=== PATIENT | male | born 1950 | race African-American/Black ===

== ENCOUNTER 2019-07-12 03:16 | Inpatient (IN) | payer OTHER ==
[~2019-07-12] VITALS: Ht 177.8 cm; Wt 95.3 kg
--- NOTE | 2019-07-12 03:16 | NUR ---
PT RICHARD ALS. TAKEN TO BED 4
[2019-07-12 03:17] VITALS: BP 173/109
--- NOTE | 2019-07-12 03:17 | NUR ---
69 Y/O M BROUGHT INTO ER BY ALS WITH C/O SOB AND CHEST TIGHTNESS, PT REPORTS WORSENING SYMPTOMS WHEN LYING DOWN OR EVEN SITTING UP. PAST MED HX OF CHF AND HTN. PT REPORTS NONCOMPLIANCE WITH LASIX FOR A VERY LONG TIME DUE TO NOT REFILLING PRESCRIPTION AND RUNNING OUT. ONLY MEDICATION TAKEN WAS CHEWABLE ASPIRIN. PROPANOLOL TAKEN 2 DAYS AGO. RATES PAIN 5/10. PT SEEN STANDING UP AND REFUSED TO SIT DOWN WHEN ASKED BY RN. NO HX OF FALLS, NKA, DENIES V/D/C, STATES HE HAS A LITTLE BIT OF NAUSEA. HEART RATE ELEVATED-113, BP-173/109, O2-100%. ER MD MADE AWARE. WILL CONTINUE TO MONITOR.
--- NOTE | 2019-07-12 03:41 | NUR ---
Dr. English examining patient.
--- NOTE | 2019-07-12 04:00 | NUR ---
LAB AT BEDSIDE FOR BLOOD DRAW, PATIENT SITTING UP IN BED, TOLERATING WELL.
--- NOTE | 2019-07-12 04:02 | NUR ---
URINE SAMPLE COLLECTED AND RECEIVED BY LAB, PATIENT ABLE TO AMBULATE TO AND FROM RESTROOM WITHOUT INCIDENT. FLU SWAB ALSO COLLECTED AND GIVEN TO LAB.
--- NOTE | 2019-07-12 04:10 | NUR ---
PERIPHERAL IV INSERTED SUCCESSFULLY AFTER SECOND ATTEMPT. RIGHT AC 20G, FLUSHED, PATENT WITHOUT SYMPTOMS, SALINE LOCKED, PATIENT TOLERATED WELL.
[2019-07-12 04:14] LABS: BASOPHILS % (AUTO) 0.7 % (0.0-2.0); EOSINOPHILS # (AUTO) 0.1 K/uL (0-0.4); EOSINOPHILS % (AUTO) 1.1 % (0.0-4.0); HEMATOCRIT 45.7 % (36-52); HEMOGLOBIN 15.1 g/dL (12.0-18.0); LYMPHOCYTES % (AUTO) 22.9 % (20.5-51.1); MEAN CORPUSCULAR HEMOGLOBIN 29 pg (27-31); MEAN CORPUSCULAR HGB CONC 33 g/dL (33-37); MEAN CORPUSCULAR VOLUME 88.9 fL (80-94); MONOCYTES # (AUTO) 0.4 K/uL (0.8-1.0); NEUTROPHILS # (AUTO) 2.9 K/uL (1.8-7.7); NEUTROPHILS % (AUTO) 65.3 % (42.2-75.2); PLATELET COUNT (AUTO) 239 K/uL (140-450); RED BLOOD CELL COUNT(AUTO) 5.15 MIL/uL (4.20-6.10); RED CELL DISTRIBUTION WIDTH 14.4 % (11.6-13.7); WHITE BLOOD COUNT (AUTO) 4.5 K/uL (4.8-10.8)
[2019-07-12 04:16] LABS: APPEARANCE,URINE CLEAR (CLEAR); BILIRUBIN,URINE NEGATIVE (NEGATIVE); BLOOD, URINE NEGATIVE (NEGATIVE); COLOR,URINE YELLOW (YELLOW); LEUKOCYTE ESTERASE ,URINE NEGATIVE (NEGATIVE); NITRITE, URINE NEGATIVE (NEGATIVE); PH,URINE 8.5 (5.0-9.0); UGLUCOSE NEGATIVE (NEGATIVE)
--- NOTE | 2019-07-12 04:22 | NUR ---
X-Ray at bedside.
[2019-07-12 04:34] LABS: PROTHROMBIN TIME 10.1 secs (10.8-13.4)
[2019-07-12 04:40] LABS: BARBITURATE, URINE NEGATIVE ng/ml (NEG <=200); BENZODIAZEPINE, URINE NEGATIVE ng/mL (NEG <=200); CANNABINOID, URINE NEGATIVE ng/mL (NEG <=50); COCAINE, URINE NEGATIVE ng/mL (NEG <=300); OPIATE, URINE NEGATIVE ng/mL (NEG <=2000); PHENCYCLIDINE SCREEN,URINE NEGATIVE ng/mL (NEG <=25)
[2019-07-12 04:41] LABS: ANION GAP 13.4 (8-16); CARBON DIOXIDE 30.9 mmol/L (21-32); POTASSIUM 4.3 mmol/L (3.5-5.1)
[2019-07-12 04:42] LABS: ALBUMIN 3.9 g/dL (3.4-5.0); CREATININE 1.9 mg/dL (0.7-1.3); TOTAL BILIRUBIN 0.7 mg/dL (0.0-1.0)
--- NOTE | 2019-07-12 04:48 | NUR ---
CRITICAL LAB RECEIVED FROM JENNY, TROPONIN: 0.313, AND LACTIC ACID-2.8. GABINO MADE AWARE.
[2019-07-12] MEDS ORDERED: ASPIRIN 81 MG TAB.CHEW PO ONE (04:55)
--- NOTE | 2019-07-12 05:40 | NUR ---
PT AMBULATES TO RESTROOM. GAIT IS STEADY. WILL CONTINUE TO MONITOR.
[2019-07-12] MEDS ORDERED: ASPI-1718 PO (05:42)
[2019-07-12] MEDS ORDERED: PROP20TA29 PO (05:42)
[2019-07-12] MEDS ORDERED: ACETAMINOPHEN 325 MG TAB PO PRN (06:00)
[2019-07-12] MEDS ORDERED: MORPHINE SULFATE 2 MG/ML SYR IVP PRN (06:00)
[2019-07-12] MEDS ORDERED: DOCUSATE SODIUM 100 MG GELCAP PO PRN (06:00)
[2019-07-12] MEDS ORDERED: HYDROcodone/APAP 7.5/325 MG 1 TAB PO PRN (06:00)
[2019-07-12] MEDS ORDERED: ALBUTEROL SULFATE/IPRATROPIU 3 ML SOL IH PRN (06:00)
[2019-07-12] MEDS ORDERED: ONDANSETRON 4 MG/2 ML VIAL IM/IVP PRN (06:00)
--- NOTE | 2019-07-12 06:23 | NUR ---
PT IS NOT IN ROOM 125B AND HIS MEDS ARE NOT IN PIXIS
[2019-07-12] MEDS ORDERED: NITROGLYCERIN 0.4 MG TAB SL PRN (06:25)
[2019-07-12] MEDS ORDERED: INSULIN LISPRO SLIDING SCALE 100 UNITS/ML VIAL SUBQ PRN (06:25)
[2019-07-12] MEDS ORDERED: DEXTROSE 50% 50 ML SYR IVP PRN (06:25)
--- NOTE | 2019-07-12 06:30 | NUR ---
Patient will be admitted to care of DR. TURCIOS. Admited to MST. Will go to room 125B. Belongings list completed, INITIALED BY 2 RN'S. Report to GARRISON REYNOSO. VSS. NO COMPLAINTS AT THIS TIME.
--- NOTE | 2019-07-12 06:32 | NUR ---
PATIENT TAKEN TO [facility] ROOM 125 B VIA GURNEY, PATIENT AMBULATED TO BED WITHOUT INCIDENT. REPORT GIVEN TO GARRISON REYNOSO. BELONGINGS LIST SIGNED, CONFIRMED PATIENT HAS EYEGLASSES ON. CONNECTED TO TELE MONITOR AND ORIENTED TO CALL LIGHT. BED IN LOCKED POSITION, SIDERAILS UPx2.
--- NOTE | 2019-07-12 06:33 | NUR ---
RECEIVED PT FROM ER PER MICHAEL, AMBULATED TO BED WITH STEADY GAIT, VITAL SIGNS TAKEN, BP ELEVATED, ASYMPTOMATIC, DENIES CHEST PAIN, 98% ON ROOM AIR, NO SOB NOTED, MADE COMFORTABLE ON BED, CALL LIGHT WITHIN REACH.
[2019-07-12] MEDS: NACL 0.9% 1,000 ML IV SCH ×2 (06:45→18:07)
[2019-07-12] MEDS ORDERED: ALBUTEROL SULFATE/IPRATROPIU 3 ML SOL IH SCH (07:00)
[2019-07-12 07:07] LABS: MAGNESIUM 2.6 mg/dL (1.8-2.4); PHOSPHORUS 2.5 mg/dL (2.5-4.9); THYROID STIMULATING HORMONE 4.37 uIU/mL (0.34-3.74)
[2019-07-12 07:08] VITALS: BP 158/107
--- NOTE | 2019-07-12 07:08 | NUR ---
RECEIVED PT FROM DATABASE ARCHITECT NURSEANGELES, PT IS AWAKE AND SEATED ON THE BED WITH SIDE RAILS UP AND CALL LIGHT WITHIN, PERIPHERAL LINE ON THE RT AC G. 20, WITH NS INFUSING AT 100ML/HR, BILATERAL ANKLE SWELLING NOTED, NON-PITTING, PT DENIES CHEST PAIN, NO SIGN OF DISTRESS NOTED. WILL MONITOR PT
--- NOTE | 2019-07-12 07:10 | NUR ---
PT AWAKE, NO SIGNS OF DISTRESS, REPORT GIVEN TO GARRISON SHEIKH FOR CONTINUITY OF CARE.
[2019-07-12] MEDS: BLOOD GLUCOSE MONITORING 1 DEV DEV FS SCH ×4 (07:40→21:28)
--- NOTE | 2019-07-12 08:20 | NUR ---
PATIENT HAS BEEN SCREENED AND CATEGORIZED MODERATE NUTRITION RISK. PATIENT WILL BE SEEN WITHIN 3-5 DAYS OF ADMISSION. 07/14/19 07/16/[address]
[2019-07-12] MEDS ORDERED: LISINOPRIL 5 MG TAB PO SCH (09:00)
[2019-07-12] MEDS: FAMOTIDINE 20 MG TAB PO SCH (09:00)
[2019-07-12] MEDS: ASPIRIN 81 MG TAB.CHEW PO SCH (09:20)
[2019-07-12] MEDS: METOPROLOL 25 MG TAB PO SCH ×2 (09:22→21:27)
[2019-07-12] MEDS ORDERED: FAMOTIDINE 20 MG TAB PO SCH (11:36)
[2019-07-12] MEDS ORDERED: HEPARIN PER PHARMACY MC PRN (11:45)
[2019-07-12 12:00] VITALS: BP 121/86
[2019-07-12] MEDS: hePARIN / DEXT 5% PREMIX 250 ML IV SCH (13:27)
--- NOTE | 2019-07-12 13:27 | NUR ---
PT WAS STARTED WITH HEPARIN DRIP NOW AT 100 UNITS/HR, CO- SIGNED BY CHARGED NURSE, EUSEBIO. 4000 UNITS BOLUS OF HEPARIN WAS ADMINISTERED IV PUSH. WILL MONITOR PT.
--- NOTE | 2019-07-12 13:27 | NUR ---
DISCHARGE PLANNIN69 YEAR OLD MALE PATIENT HOME, ADMITTED DUE TO SOB, DYSPNEA AND CHEST TIGHTENING. WITH INITIAL DIAGNOSIS OF DYSPNEA, NSTEMI AND ELEVATED TROPONIN. PAST MEDICAL HISTORY INCLUDE HTN. TROPONIN ON ADMISSION 0.313 AND TODAY 2.162. ON HEPARIN DRIP, PTT 22.8. CXR SHOWED MILD CARDIOMEGALY AND LARGE HIATAL HERNIA. LACTIC ACID 3.0. CARDIO CONSULT WITH DR. WATERS FOR CHEST PAIN. DC PLAN PENDING PATIENT'S RESPONSE TO TREATMENT. Addendum: 07/13/19 at 1205 by Padmaja Ballard LATE ENTRY: RECEIVED AN ORDER FOR HIGHER LEVEL OF CARE TRANSFER FOR CARDIAC ANGIOGRAM TO [facility]. CONTACTED [facility], TRANSFERRED TO WIRELESS TELEGRAPHER. ABLE TO SPEAK TO MO. HE STATED ALL REFERRAL WILL GO THROUGH CASE MANAGEMENT. AND HE ALSO STATED THAT THEY ARE CLOSED THURSDAY AND THURSDAY FOR THE HOLIDAYS. CONTACTED CASE MANAGEMENT, SPOKE TO ALMA DELIA SMALL KICK PRESS OPERATOR. ALL CLINICALS FAXED TO [phone]. RECEIVED A CALL FROM ALMA DELIA, PROVIDED ME WITH DR. BLOUNT'S PHONE NUMBER [phone] FOR THE RESIDENT TO CALL. DR. CHAUDHARY MADE AWARE. OSCAR TO FOLLOW UP. Addendum: 07/13/19 at 1316 by Padmaja Ballard CM LATE ENTRY: PER DR. CHAUDHARY, DR. BLOUNT IS ABLE TO DO THE PROCEDURE BUT WE NEED AN ACCEPTING PHYSICIAN. HE REFERRED DR. RAHMAN. PER DR. CHAUDHARY, DR. RAHMAN IS ACCEPTING THE PATIENT. ALMA DELIA BENJAMINSULFURIC ACID PLANT OPERATOR MADE AWARE. CONTACTED TRAIN OPERATIONS SUPERVISOR AT [facility], NO ANSWER. LEFT MESSAGE. Addendum: 07/13/19 at 1437 by Padmaja Ballard CM LATE ENTRY: RECEIVED A CALL FROM JEROD NICHOLSTRAIN OPERATIONS SUPERVISOR FROM [facility]. SHE STATED THEY DO NOT HAVE A BED AVAILABLE AT THIS TIME. BUT STATED SHE WILL CONTACT MO FROM WIRELESS TELEGRAPHER IF THEY ARE ABLE TO DO THE PROCEDURE. RECEIVED A CALL FROM [facility]. SHE STATED THEY CAN DO THE PROCEDURE BUT PATIENT NEEDS TO BE THERE BEFORE 1400. DR. CHAUDHARY MADE AWARE. TRANSPORT SET UP WITH [facility] TRANSPORT IS EN ROUTE. PRIMARY RN MADE AWARE. RECEIVE A CALL FROM ALMA DELIA MOORE SMALL KICK PRESS OPERATOR, PATIENT CAN HAVE THE PROCEDURE DONE AT [facility] AND BACK TO [place]. DR CHAUDHARY MADE AWARE. HE STATED HE WILL CONTACT DR TURCIOS AND DR. WATERS. PER DR. CHAUDHARY, DR. TURCIOS WANTS THE PATIENT TO BE TRANSFERRED TO A HIGHER LEVEL OF CARE. JEREMIAH [facility] WIRELESS TELEGRAPHER, ALMA DELIA MOORE SMALL KICK PRESS OPERATOR, LADY NEWSOMETRAIN OPERATIONS SUPERVISOR AND JEREMIAS COWART MADE AWARE. [facility] TRANSPORT PLACED ON WILL CALL. Addendum: 07/13/19 at 1601 by Laurel Sewell CM DC PLANNING: CALLED [facility] [phone] SPOKE WITH SAKINA NEWSOME SUP STATED NEEDS ADMITTING OR ACCEPTING DR Wisdom NOTIFIED DR JAMES TO ASK DR KAILEE Muniz CM TO FOLLOW Addendum: 07/13/19 at 1628 by Padmaja Ballard PER SAWYER GARCIA [facility], THEY DO NOT PERFORM CARDIAC CATH. Addendum: 07/13/19 at 1641 by Laurel Donato DC PLANNING: SPOKE WITH DR KAILEE Wisdom STATED HE HAS ACCEPTING DR SALAZAR WILL BE THE ACCEPTING [employer] AND THE PROCEDURE CAN BE DONE ON THURSDAY. PER DR DUGAN PT CAN STAY HERE AT [facility] AND TRANSFER ON THURSDAY. [facility] SPOKE MARLYS JIM AND PROVIDED DR PERALTA # [phone] SAKINA WILL CONTACT HIM AND WILL ARRANGE TO TRANSFER THURSDAY
--- NOTE | 2019-07-12 15:50 | NUR ---
Med Specialist Note: Basic Screen: Yes High Risk DC Screen [place]: HANNAH VIERA [place] Relationship: FRIEND Pre-Admission Living Arrangements: Lives Alone Prior ADL Independent Current Home Health Name/Tel: N/A Current DME/02 Name/Tel: N/A Current Hospice Name/Tel: N/A Current Dialysis Name/Tel: N/A Healthcare Decision Maker: Patient Advance Directive No - REFUSED Physician Orders for Life Sustaining Treatment Form No Patient/Family Have Educational Needs No Information Taught: Advance Directive Person Taught: Patient Teaching Tools: Verbal Factors Affecting Learning: None Participation Level: Refused Evaluation: Verbalizes Understanding Needs Additional Education: No Discipline: Case Mgt/Social Svcs Tentative Discharge Plan/Destination: No Needs Identified Will require assistance post discharge: No Referred to Secretary: No Tentative Discharge Plan Summary: Patient is a 69-year-old male admitted for complaints of body aches, congestion and mild shortness of breath associated with mild tightness in chest. Patient has PMHX of CHF and hypertension. SW verified demographics with patient. Patient stated that address on [address] [place] [address]. [address], [place] [address]. Patient reports no history of mental health and no history of substance abuse. Patient's tentative plan after discharge is to return home. No further needs identified. Signature: SAMRA Palma Date: Jul 12, 2019 Time: 15:46
[2019-07-12 16:00] VITALS: BP 138/85
--- NOTE | 2019-07-12 19:35 | NUR ---
ENDORSED PT TO FILE KEEPER NURSE FOR CONTINUITY OF CARE.
--- NOTE | 2019-07-12 19:36 | NUR ---
RECEIVED ENDORSEMENT FROM AM SHIFT NURSE FOR CONTINUITY OF CARE. PATIENT ALERT AND ORIENTED X4. NO APPARENT DISTRESS NOTED. DENIES PAIN NOR DISCOMFORT. WITH PIV ON LFA 22G RUNNING HEPARIN. NO ADVERSE REACTION NOTED. NO INFILTRATION NOTED. WILL CONTINUE TO MONITOR.
[2019-07-12 20:00] VITALS: BP 109/66
--- NOTE | 2019-07-12 21:25 | NUR ---
PATIENT AWAKE IN BED. NO APPARENT DISTRESS NOTED. WILL CONTINUE TO MONITOR.
[2019-07-12] MEDS: ATORVASTATIN 20 MG TAB PO SCH (21:27)
--- NOTE | 2019-07-12 23:20 | NUR ---
PATIENT AWAKE IN BED, RESTING. DENIES PAIN NOR DISCOMFORT. HEPARIN STILL RUNNING ON LEFT FOREARM. NO ADVERSE REACTIONS NOTED. NO INFILTRATION NOTED. WILL CONTINUE TO MONITOR.
[2019-07-13] VITALS: BP 121/92
--- NOTE | 2019-07-13 01:16 | NUR ---
PATIENT ASLEEP IN BED. NO APPARENT DISTRESS NOTED. WILL CONTINUE TO MONITOR.
--- NOTE | 2019-07-13 03:17 | NUR ---
PATIENT ASLEEP IN BED. NO APPARENT DISTRESS NOTED. VISIBLE CHEST RISE AND FALL. WILL CONTINUE TO MONITOR.
[2019-07-13 04:00] VITALS: BP 133/83
--- NOTE | 2019-07-13 05:15 | NUR ---
PATIENT AWAKE IN BED. NO APPARENT DISTRESS NOTED. DENIES PAIN NOR DISCOMFORT. WILL CONTINUE TO MONITOR.
[2019-07-13 06:35] LABS: ANION GAP 14.9 (8-16); CREATININE 1.4 mg/dL (0.7-1.3); POTASSIUM 3.9 mmol/L (3.5-5.1)
[2019-07-13 06:38] LABS: CHOL/HDL RATIO 3.3 (1-4.5); MAGNESIUM 1.8 mg/dL (1.8-2.4); PHOSPHORUS 2.9 mg/dL (2.5-4.9)
[2019-07-13 06:53] LABS: BASOPHILS % (AUTO) 0.4 % (0.0-2.0); EOSINOPHILS # (AUTO) 0.1 K/uL (0-0.4); EOSINOPHILS % (AUTO) 1.4 % (0.0-4.0); HEMATOCRIT 41.8 % (36-52); HEMOGLOBIN 13.9 g/dL (12.0-18.0); LYMPHOCYTES # (AUTO) 1.1 K/uL (2.0-11.5); LYMPHOCYTES % (AUTO) 24.1 % (20.5-51.1); MEAN CORPUSCULAR HEMOGLOBIN 29 pg (27-31); MEAN CORPUSCULAR HGB CONC 33 g/dL (33-37); MEAN CORPUSCULAR VOLUME 88.4 fL (80-94); MONOCYTES # (AUTO) 0.6 K/uL (0.8-1.0); MONOCYTES % (AUTO) 13.6 % (1.7-9.3); NEUTROPHILS # (AUTO) 2.7 K/uL (1.8-7.7); NEUTROPHILS % (AUTO) 60.5 % (42.2-75.2); PLATELET COUNT (AUTO) 193 K/uL (140-450); RED BLOOD CELL COUNT(AUTO) 4.73 MIL/uL (4.20-6.10); RED CELL DISTRIBUTION WIDTH 14.5 % (11.6-13.7); WHITE BLOOD COUNT (AUTO) 4.5 K/uL (4.8-10.8)
--- NOTE | 2019-07-13 07:13 | NUR ---
ENDORSED TO AM SHIFT NURSE FOR CONTINUITY OF CARE.
--- NOTE | 2019-07-13 07:14 | NUR ---
RECEIVED REPORT FROM THE LOANS CONSULTANT NURSE. PT IS IN STABLE CONDITION. AWAKE AND ORIENTED. ROOM AIR. IV ON L FA 22G W/ HEPARIN INFUSING AT 1000U/HR. IV ON L HAND 24G NS AT 50ML/HR. PT TOLERATING WELL. NO SIGNS OF INFILTRATION. DRESSING INTACT. SKIN INTACT. LAST BM 07/13, THIS MORNING. V/S WITHIN NORMAL RANGE. DENIES PAIN. WILL CONTINUE TO MONITOR PT.
[2019-07-13] MEDS: BLOOD GLUCOSE MONITORING 1 DEV DEV FS SCH ×4 (07:34→20:58)
[2019-07-13 08:00] VITALS: BP 126/62
[2019-07-13] MEDS: ASPIRIN 81 MG TAB.CHEW PO SCH (09:33)
[2019-07-13] MEDS: FAMOTIDINE 20 MG TAB PO SCH (09:36)
[2019-07-13] MEDS: METOPROLOL 25 MG TAB PO SCH ×2 (09:36→20:58)
[2019-07-13] MEDS: LISINOPRIL 5 MG TAB PO SCH (09:37)
[2019-07-13] MEDS: NACL 0.9% 1,000 ML IV SCH (09:37)
[2019-07-13] MEDS: hePARIN / DEXT 5% PREMIX 250 ML IV SCH (09:45)
--- NOTE | 2019-07-13 09:47 | NUR ---
ADMINISTERED MORNING MEDS. ANSWERED ALL QUESTIONS. PTT CAME BACK 47.4. NO CHANGE. ADMINISTERED NEW BAG OF HEPARIN, STILL AT 1000U/HR. PT TOLERATING WELL. NO SIGNS OF DISTRESS. NO COMPLAINTS. NO PAIN. WILL CONTINUE TO MONITOR PT.
--- NOTE | 2019-07-13 10:00 | NUR ---
HARNESS BUILDER HERE TO SEE PT. PER MD, PT IS IN NEED FOR CT ANGIOGRAM. BUT IT IS NOT DONE HERE. WILL NEED TO GO TO HIGHER LEVEL OF CARE, POSSIBLY [place]. SS ORDER IN FOR TRANSFER. WILL AWAIT D/C ORDERS AND START D/C PROCESS.
[2019-07-13] MEDS ORDERED: DOCU-299 PO (10:54)
[2019-07-13] MEDS ORDERED: ACET-1182 PO (10:54)
[2019-07-13] MEDS ORDERED: LISI-424 PO (10:54)
[2019-07-13] MEDS ORDERED: HUMSLIDE SUBQ (10:54)
[2019-07-13] MEDS ORDERED: METO25TA PO (10:54)
[2019-07-13] MEDS ORDERED: MORP2SOL18 IVP (10:54)
[2019-07-13] MEDS ORDERED: FAMO20TA13 PO (10:54)
[2019-07-13] MEDS ORDERED: ALBU3SOL83 IH (10:54)
[2019-07-13] MEDS ORDERED: D50SYR IVP (10:54)
[2019-07-13] MEDS ORDERED: HEPA500056 IV (10:54)
[2019-07-13] MEDS ORDERED: GLUC-805 FS (10:54)
[2019-07-13] MEDS ORDERED: ONDA2SOL45 IM/IVP (10:54)
[2019-07-13] MEDS ORDERED: ACET-9529 PO (10:54)
[2019-07-13] MEDS ORDERED: HEPA-133 IV (10:54)
[2019-07-13] MEDS ORDERED: NITR0.4T1 SL (10:54)
[2019-07-13] MEDS ORDERED: ATOR20TA40 PO (10:54)
[2019-07-13] MEDS ORDERED: Heparin Per Pharmacy MC (10:54)
--- NOTE | 2019-07-13 11:11 | NUR ---
R/T IN THE ROOM. NO SIGNS OF RESPIRATORY DISTRESS. ALL NEEDS MET AT THIS TIME. WILL CONTINUE TO MONITOR PT.
[2019-07-13 12:00] VITALS: BP 145/94
--- NOTE | 2019-07-13 13:17 | NUR ---
CALLED AND SPOKE TO CM. AWAITING FOR BED AT [place]. WILL AWAIT FOR BED.
[2019-07-13 16:00] VITALS: BP 139/86
--- NOTE | 2019-07-13 19:00 | NUR ---
RECEIVED REPORT FROM AM SHIFT SHIFT NURSE. AWAKE AND ORIENTED. ROOM AIR. IV ON L FA 22G W/ HEPARIN INFUSING AT 1000U/HR. IV ON L HAND 24G NS AT 50ML/HR. PT TOLERATING WELL. NO SIGNS OF INFILTRATION. DRESSING INTACT. SKIN INTACT. DENIES PAIN. WILL CONTINUE TO MONITOR PT. FOR CARDIAC CATHERIZATION ENDORSED BY LAY FREEMAN. SSD STILL TAKING CARE OF IT, FOR A HIGHER LEVEL OF CARE.
[2019-07-13 20:00] VITALS: BP 133/87
--- NOTE | 2019-07-13 20:39 | NUR ---
ENDORSED ABELARDO TOMAS SHIFT NURSE FOR CONTINUITY OF CARE. EENDORSED PTT TO BE TAKEN FROM LAST BLOOD DRAW, STILL TO ORDER
--- NOTE | 2019-07-13 20:40 | NUR ---
RECEIVED PT FROM [facility] FOR CONTINUOUS CARE. PT IN STABLE CONDITION.
[2019-07-13] MEDS: ATORVASTATIN 20 MG TAB PO SCH (20:58)
--- NOTE | 2019-07-13 20:58 | NUR ---
GIVEN LIPITOR AND METOPROLOL MD ORDERED. PT TOLERATED WELL. BS CHECKED, 86, NO INSULIN COVERAGE NEEDED.
--- NOTE | 2019-07-13 22:06 | NUR ---
RECEIVED PT ON ROOM AIR WITH SP02 98%. NO RESPIRATORY DISTRESS NOTED AT THIS TIME. PRN TX NOT GIVEN. PT INFORMED TO NOTIFY RN WHEN EXPERIENCING SOB. WILL CONTINUE TO MONITOR PT
[2019-07-13] MEDS ORDERED: MELATONIN 3 MG TAB PO PRN (22:45)
--- NOTE | 2019-07-13 22:58 | NUR ---
PT C/O SLEEPLESSNESS, GIVEN MELATONIN MD ORDERED. PT TOLERATED WELL.
[2019-07-14] VITALS: BP 157/102
--- NOTE | 2019-07-14 00:10 | NUR ---
VS CHECKED, WITHIN PT'S BASELINE, WILL CONTINUE TO MONITOR.
--- NOTE | 2019-07-14 02:08 | NUR ---
PT SLEEPING IN BED. NO ACUTE DISTRESS NOTED.
[2019-07-14 04:00] VITALS: BP 118/76
--- NOTE | 2019-07-14 04:00 | NUR ---
VS CHECKED, WITHIN PT'S BASELINE. WILL CONTINUE TO MONITOR.
[2019-07-14] MEDS: BLOOD GLUCOSE MONITORING 1 DEV DEV FS SCH ×4 (05:39→20:41)
--- NOTE | 2019-07-14 05:39 | NUR ---
BS CHECKED, 88. NO INSULIN COVERAGE NEEDED.
[2019-07-14 05:59] LABS: ANION GAP 16.6 (8-16); CARBON DIOXIDE 24.5 mmol/L (21-32); CREATININE 1.4 mg/dL (0.7-1.3); POTASSIUM 4.1 mmol/L (3.5-5.1)
[2019-07-14 06:12] LABS: BASOPHILS % (AUTO) 0.8 % (0.0-2.0); EOSINOPHILS % (AUTO) 0.9 % (0.0-4.0); HEMATOCRIT 44.6 % (36-52); HEMOGLOBIN 14.9 g/dL (12.0-18.0); LYMPHOCYTES # (AUTO) 1.2 K/uL (2.0-11.5); MEAN CORPUSCULAR HEMOGLOBIN 30 pg (27-31); MEAN CORPUSCULAR HGB CONC 33 g/dL (33-37); MEAN CORPUSCULAR VOLUME 88.6 fL (80-94); MONOCYTES # (AUTO) 0.6 K/uL (0.8-1.0); MONOCYTES % (AUTO) 12.4 % (1.7-9.3); NEUTROPHILS # (AUTO) 2.7 K/uL (1.8-7.7); NEUTROPHILS % (AUTO) 59.9 % (42.2-75.2); PLATELET COUNT (AUTO) 193 K/uL (140-450); RED BLOOD CELL COUNT(AUTO) 5.03 MIL/uL (4.20-6.10); RED CELL DISTRIBUTION WIDTH 14.3 % (11.6-13.7); WHITE BLOOD COUNT (AUTO) 4.5 K/uL (4.8-10.8)
[2019-07-14 06:14] LABS: MAGNESIUM 1.8 mg/dL (1.8-2.4); PHOSPHORUS 3.3 mg/dL (2.5-4.9)
--- NOTE | 2019-07-14 06:30 | NUR ---
RECEIVED PHONE CALL FROM LAB FOR CRITICAL VALUE, TROPONIN 3.680, NOT REPORTED TO D/T TRENDING DOWN.
--- NOTE | 2019-07-14 07:02 | NUR ---
RECEIVED PHONE CALL FROM LAB FOR PTT 50.3. NOT REPORTED TO D/T IT IS WITHIN THERAPEUTIC RANGE.
--- NOTE | 2019-07-14 07:23 | NUR ---
ENDORSED PT TO DAY SHIFT NURSE. PT IN STABLE CONDITION.
--- NOTE | 2019-07-14 07:28 | NUR ---
RECEIVED PT FROM NIGHT SHIFTY NURSE, GENOVEVA, PT IS ASLEEP AND LYING ON THE BED WITH SIDE RAILS UP AND CALL LIGHT WITHIN REACH, IV LINES NOTED ON THE LEFT FA G. 22 WITH HEPARIN DRIP INFUSING AT 100UNITS, 1OML/HR, AND ON THE RT HAND G. 24 WITH NS INFUSING AT 50ML/HR, RESPIRATION EVEN, VISIBLE CHEST RISE, NO SIGN OF DISTRESS NOTED AND WILL CONTINUE TO MONITOR PT.
[2019-07-14 08:00] VITALS: BP 118/56
[2019-07-14] MEDS: FAMOTIDINE 20 MG TAB PO SCH (08:31)
[2019-07-14] MEDS: LISINOPRIL 5 MG TAB PO SCH (08:32)
[2019-07-14] MEDS: METOPROLOL 25 MG TAB PO SCH ×2 (08:32→20:40)
[2019-07-14] MEDS: ASPIRIN 81 MG TAB.CHEW PO SCH (08:32)
--- NOTE | 2019-07-14 08:32 | NUR ---
PT IS STANDING AND JUST FINISHED EATING HIS BREAKFAST, BP IS 118/56, PULSE WAS CHECKED MANUALLY AND IS 89/MIN, O2 SATURATION IS 97%, TEMPERATURE IS 98.3, ORAL MEDICATIONS WERE GIVEN TO PT, TEACHINGS AND SIDE EFFECTS WERE STATED TO PT AND PT VERBALIZED UNDERSTANDING, TOLERATED MEDICINES AND WILL CONTINUE TO BE MONITORED.
--- NOTE | 2019-07-14 09:26 | NUR ---
RECEIVED A CALL FROM DR. PERALTA, WORKING WITH DR. CHRISTOPHER DUGAN, FROM [facility] AND DR. PERALTA SAID THAT PT WILL BE TRANSFERRED TO [facility] TOMORROW FOR A CARDIAC CATH AT 1000 AM, BUT PT NEEDS TO BE IN THE TELEMETRY UNIT FIRST BETWEEN [phone] FOR MONITORING BEFORE GOING TO THE DESIGN ASSISTANT, MADE A TELEPHONE ORDER TO STOP PT'S HEPARIN DRIP AT MIDNIGHT AND PUT PT ON NPO AFTER MIDNIGHT TOO. DR. WILKINS WAS INFORMED AND SPOKE TO DR. PERALTA WELL. DOCUMENT EXAMINER, MANNY AND CHARGE NURSE,Fahad WILBURN WERE NOTIFIED ALSO.
[2019-07-14] MEDS: NACL 0.9% 1,000 ML IV SCH (10:14)
[2019-07-14] MEDS: hePARIN / DEXT 5% PREMIX 250 ML IV SCH (11:52)
--- NOTE | 2019-07-14 11:52 | NUR ---
ANEW BAG OF HEAPRIN WA STARTED TO PT, CO-SIGNED BY CHARGE NURSE, AKILA., RATE AT 100 UNITS/HR, WILL MONITOR PT
--- NOTE | 2019-07-14 11:54 | NUR ---
BLOOD GLUCOSE CHECK WAS DONE TO PT, RESULT IS 88, AND V/S TAKEN AND IS STABLE. WILL MONITOR PT.
[2019-07-14 12:00] VITALS: BP 103/68
--- NOTE | 2019-07-14 14:40 | NUR ---
CALLED [facility] AT [phone] AND SPOKE TO ANA CRISTINA, AND SAID THAT THEY WILL BE CALLING LATER TONIGHT FOR THE TELE BED NO. AND ANA CRISTINA ALSO SAID TO ARRANGE FOR THE TRANSPORTATION OF PT FOR TRANSFER TOMORROW AND PT NEEDS TO BE IN [facility] BET [phone].
[2019-07-14 16:00] VITALS: BP 129/87
--- NOTE | 2019-07-14 17:23 | NUR ---
BLOOD GLUCOSE CHECK DONE TO PT NOW AND RESULT IS 83, V/S TAKEN AND IS STABLE AND PT DENIES PAIN, WATCHING TV. WILL MONITOR TP
--- NOTE | 2019-07-14 19:15 | NUR ---
ENDORSED PT TO LINING VAMPER NURSEGENOVEVA FOR CONTINUITY OF CARE.
--- NOTE | 2019-07-14 19:16 | NUR ---
RECEIVED BEDSIDE REPORT FROM DAY SHIFT NURSE. PT IS AWAKE AND LYING ON THE BED WITH SIDE RAILS UP, IV LINES NOTED ON THE LEFT FA G. 22 WITH HEPARIN DRIP INFUSING AT 1000 UNITS, 1OML/HR, AND ON THE RT HAND G. 24 WITH NS INFUSING AT 50ML/HR, RESPIRATION EVEN AND UNLABORED, PT DENIED PAIN AT THIS TIME, NO SIGN OF DISTRESS NOTED. BED IN LOW POSITION, CALL LIGHT WITHIN REACH.
[2019-07-14 20:00] VITALS: BP_SYST 128; BP_SYST 131; BP_DIAS 88; BP_DIAS 93
[2019-07-14] MEDS: ATORVASTATIN 20 MG TAB PO SCH (20:40)
--- NOTE | 2019-07-14 20:41 | NUR ---
GIVEN LIPITOR AND METOPROLOL MD ORDERED. BS CHECKED, 104. NO INSULIN COVERAGE NEEDED.
--- NOTE | 2019-07-14 21:55 | NUR ---
CALLED [facility] TO FOLLOW UP TELE BED FOR PT . ABLE TO TALKED TO ZARI. HE SAID THEY ARE WORKING ON IT AND WILL CALL US BACK .
--- NOTE | 2019-07-14 22:52 | NUR ---
RECEIVED PT ON ROOM AIR WITH SP02 97%, AND CLEAR BREATH SOUNDS. NO RESPIRATORY DISTRESS NOTED; HR 81, AND RR 16. PRN TX NOT GIVEN. INFORMED PT TO NOTIFY RN WHEN EXPERIENCING SOB.
[2019-07-15] VITALS: BP 131/88
--- NOTE | 2019-07-15 00:05 | NUR ---
VS CHECKED, WITHIN PT'S BASELINE, WILL CONTINUE TO MONITOR.
--- NOTE | 2019-07-15 01:23 | NUR ---
CALLED [facility] AGAIN TO FOLLOW UP THE TELE BED FOR PT. HE SAID THEY ARE AWARE ABOUT PT TO BE THERE BY 0730 THIS AM. ZARI SAID THAT NO BED AVAILABLE AND HE WILL CALL ME BACK .
--- NOTE | 2019-07-15 01:43 | NUR ---
ZARI ,FROM [facility] CALLED BACK AND GAVE THE ROOM FOR PT. PT GOING TO STATION 3 ROOM 345 A.
--- NOTE | 2019-07-15 02:15 | NUR ---
PT SLEEPING IN BED COMFORTABLY. NO ACUTE DISTRESS NOTED.
[2019-07-15 04:00] VITALS: BP 121/78
--- NOTE | 2019-07-15 04:05 | NUR ---
VS CHECKED, WITHIN PT'S BASELINE, WILL CONTINUE TO MONITOR.
--- NOTE | 2019-07-15 06:00 | NUR ---
CALLED [facility] ST[facility], REPORT GIVEN TO GARRISON MARES.
[2019-07-15] MEDS: NACL 0.9% 1,000 ML IV SCH (06:07)
[2019-07-15 06:23] LABS: ANION GAP 16.9 (8-16); CARBON DIOXIDE 24.7 mmol/L (21-32); CREATININE 1.5 mg/dL (0.7-1.3); POTASSIUM 3.6 mmol/L (3.5-5.1)
[2019-07-15 06:24] LABS: PROTHROMBIN TIME 9.7 secs (10.8-13.4)
--- NOTE | 2019-07-15 06:38 | NUR ---
BS CHECKED, 74, NO INSULIN COVERAGE NEEDED.
[2019-07-15] MEDS: BLOOD GLUCOSE MONITORING 1 DEV DEV FS SCH (06:41)
[2019-07-15 06:44] LABS: BASOPHILS # (AUTO) 0.1 K/uL (0.00-0.22); BASOPHILS % (AUTO) 1.1 % (0.0-2.0); EOSINOPHILS # (AUTO) 0.1 K/uL (0-0.4); EOSINOPHILS % (AUTO) 1.2 % (0.0-4.0); HEMATOCRIT 43.3 % (36-52); HEMOGLOBIN 14.4 g/dL (12.0-18.0); LYMPHOCYTES # (AUTO) 1.5 K/uL (2.0-11.5); LYMPHOCYTES % (AUTO) 30.6 % (20.5-51.1); MEAN CORPUSCULAR HEMOGLOBIN 29 pg (27-31); MEAN CORPUSCULAR HGB CONC 33 g/dL (33-37); MEAN CORPUSCULAR VOLUME 88.6 fL (80-94); MONOCYTES # (AUTO) 0.7 K/uL (0.8-1.0); MONOCYTES % (AUTO) 14.6 % (1.7-9.3); NEUTROPHILS # (AUTO) 2.6 K/uL (1.8-7.7); NEUTROPHILS % (AUTO) 52.5 % (42.2-75.2); PLATELET COUNT (AUTO) 224 K/uL (140-450); RED BLOOD CELL COUNT(AUTO) 4.89 MIL/uL (4.20-6.10); RED CELL DISTRIBUTION WIDTH 14.1 % (11.6-13.7)
--- NOTE | 2019-07-15 07:01 | NUR ---
TRANSPORTATION CAME AND PICKED PT UP. PT IN STABLE CONDITION AND LEFT HOSPITAL.
[2019-07-15 07:08] LABS: MAGNESIUM 1.8 mg/dL (1.8-2.4); PHOSPHORUS 3.2 mg/dL (2.5-4.9)
== END 2019-07-15 07:15 | disposition short-term general hospital (02) | DRG 280 ==
LOC: MED 03:16 → MMU 06:01
PROVIDERS: ADMIT General Practice; ATTEND General Practice
DX: I21.4 Non-ST elevation (NSTEMI) myocardial infarction (principal); N17.0 Acute kidney failure with tubular necrosis; E87.2 Acidosis; I42.9 Cardiomyopathy, unspecified; I50.9 Heart failure, unspecified; I11.0 Hypertensive heart disease with heart failure; E02 Subclinical iodine-deficiency hypothyroidism; E83.41 Hypermagnesemia; E78.5 Hyperlipidemia, unspecified
CPT/HCPCS: 36415; 71045; 80048; 80053; 80305; 81003; 82948; 83036; 83605; 83690; 83735; 83880; 84100; 84439; 84443; 84484; 85025; 85379; 85610; 85730; 87040; 87081; 87086; 87804; 93005; 99285; J1644; J1815; J7030; Q0092

== ENCOUNTER 2019-12-16 06:52 | Emergency (ER) | payer OTHER ==
[~2019-12-16] VITALS: Ht 175.3 cm; Wt 79.4 kg
[~2019-12-16 06:52] MED LIST: ACET-1182 PO; ACET-9529 PO; ALBU3SOL83 IH; ASPI-1822 PO; ATOR20TA40 PO; D50SYR IVP; DOCU-299 PO; FAMO20TA13 PO; GLUC-805 FS; HUMSLIDE SUBQ; LISI-424 PO; METO25TA PO; MORP2SOL18 IVP; NITR0.4T1 SL; ONDA2SOL45 IM/IVP
[2019-12-16 07:03] VITALS: BP 109/74
[2019-12-16] MEDS ORDERED: FUROSEMIDE 40 MG TAB PO ONE (07:35)
[2019-12-16] MEDS ORDERED: LIDOCAINE JELLY 2% 30 ML TUBE TP ONE (07:45)
[2019-12-16] MEDS ORDERED: MORPHINE SULFATE 4 MG/ML SYR IM ONE (09:00)
[2019-12-16] MEDS ORDERED: ONDANSETRON 4 MG ODT PO ONE (09:00)
[2019-12-16] MEDS ORDERED: cefTRIAXone 1,000 MG in LIDOCAINE MPF 1% 2.1 ML IM ONE (09:25)
[2019-12-16] MEDS ORDERED: cefTRIAXone 1,000 MG VIAL ONE (09:32)
[2019-12-16] MEDS ORDERED: LIDOCAINE MPF 1% 5 ML ONE (09:32)
[2019-12-16 10:23] LABS: APPEARANCE,URINE CLOUDY (CLEAR); BILIRUBIN,URINE NEGATIVE (NEGATIVE); BLOOD, URINE 3+ (NEGATIVE); COLOR,URINE AMBER (YELLOW); LEUKOCYTE ESTERASE ,URINE 1+ (NEGATIVE); NITRITE, URINE POSITIVE (NEGATIVE); UGLUCOSE NEGATIVE (NEGATIVE)
[2019-12-16 10:45] LABS: RBC,URINE TOO NUMEROUS TO COUN /HPF (0-5)
[2019-12-16 11:32] VITALS: BP 116/61
== END 2019-12-16 11:32 | disposition home or self-care (01) ==
LOC: MED 06:52
DX: R33.9 Retention of urine, unspecified (principal); L97.921 Non-pressure chronic ulcer of unspecified part of left lower leg limited to breakdown of skin; I10 Essential (primary) hypertension; I51.89 Other ill-defined heart diseases; Z79.899 Other long term (current) drug therapy
CPT/HCPCS: 81001; 87086; 96372; 99284; J0696; J2001; J2270; Q0162

== ENCOUNTER 2019-12-18 19:05 | Inpatient (IN) | payer OTHER ==
[~2019-12-18] VITALS: Ht 175.3 cm; Wt 77.6 kg
[2019-12-18 19:12] VITALS: BP 116/91
[2019-12-18 20:37] LABS: BASOPHILS % (AUTO) 0.5 % (0.0-2.0); EOSINOPHILS # (AUTO) 0.1 K/uL (0-0.4); EOSINOPHILS % (AUTO) 2.7 % (0.0-4.0); HEMATOCRIT 33.9 % (36-52); HEMOGLOBIN 10.7 g/dL (12.0-18.0); LYMPHOCYTES # (AUTO) 0.5 K/uL (2.0-11.5); LYMPHOCYTES % (AUTO) 10.4 % (20.5-51.1); MEAN CORPUSCULAR HEMOGLOBIN 25 pg (27-31); MEAN CORPUSCULAR HGB CONC 32 g/dL (33-37); MEAN CORPUSCULAR VOLUME 79.9 fL (80-94); MONOCYTES # (AUTO) 0.5 K/uL (0.8-1.0); MONOCYTES % (AUTO) 9.6 % (1.7-9.3); NEUTROPHILS # (AUTO) 3.6 K/uL (1.8-7.7); NEUTROPHILS % (AUTO) 76.8 % (42.2-75.2); PLATELET COUNT (AUTO) 220 K/uL (140-450); RED BLOOD CELL COUNT(AUTO) 4.24 MIL/uL (4.20-6.10); RED CELL DISTRIBUTION WIDTH 17.6 % (11.6-13.7); WHITE BLOOD COUNT (AUTO) 4.7 K/uL (4.8-10.8)
[2019-12-18 21:12] LABS: ALBUMIN 2.6 g/dL (3.4-5.0); ANION GAP 11.5 (8-16); CARBON DIOXIDE 27.5 mmol/L (21-32); CREATININE 1.7 mg/dL (0.6-1.3); TOTAL BILIRUBIN 1.1 mg/dL (0.0-1.0)
[2019-12-18] MEDS ORDERED: ASPIRIN 325 MG TAB PO ONE (22:20)
[2019-12-18] MEDS ORDERED: HYDROcodone/APAP 5/325 MG 1 TAB TAB PO ONE (22:30)
[2019-12-18 23:30] VITALS: BP 90/60
[2019-12-19] MEDS ORDERED: SIMETHICONE 40 MG/0.6 ML PO PRN (02:25)
[2019-12-19] MEDS ORDERED: MELATONIN 3 MG TAB ONE (02:29)
[2019-12-19] MEDS: MELATONIN 3 MG TAB PO SCH ×2 (02:44→03:26)
[2019-12-19] MEDS ORDERED: SIMETHICONE 80 MG TAB.CHEW PO SCH (03:20)
[2019-12-19 04:00] VITALS: BP 102/60
[2019-12-19] MEDS: MORPHINE SULFATE 2 MG/ML SYR IVP PRN ×2 (04:13→08:58)
[2019-12-19 08:00] VITALS: BP 94/58
[2019-12-19] MEDS ORDERED: INSULIN LISPRO SLIDING SCALE 100 UNITS/ML VIAL SUBQ PRN (10:50)
[2019-12-19] MEDS ORDERED: NITROGLYCERIN 0.4 MG TAB SL PRN (10:50)
[2019-12-19] MEDS ORDERED: ACETAMINOPHEN 325 MG TAB PO PRN (10:50)
[2019-12-19] MEDS ORDERED: ONDANSETRON 4 MG/2 ML VIAL IVP PRN (10:50)
[2019-12-19] MEDS ORDERED: DEXTROSE 50% 50 ML SYR IVP PRN (10:50)
[2019-12-19] MEDS: BLOOD GLUCOSE MONITORING 1 DEV DEV FS SCH ×3 (11:30→21:14)
[2019-12-19 12:00] VITALS: BP 104/69
[2019-12-19] MEDS ORDERED: GAUZE TP PRN (12:05)
[2019-12-19] MEDS: GAUZE TP SCH (13:16)
[2019-12-19] MEDS: HYDROcodone/APAP 7.5/325 MG 1 TAB PO PRN ×2 (15:15→20:37)
[2019-12-19 16:00] VITALS: BP 98/61
[2019-12-19 20:00] VITALS: BP 95/59
[2019-12-19] MEDS ORDERED: LACTULOSE 20 GM/30 ML UDC PO PRN (23:40)
[2019-12-20] VITALS: BP 104/70
[2019-12-20 04:00] VITALS: BP 99/67
[2019-12-20] MEDS: BLOOD GLUCOSE MONITORING 1 DEV DEV FS SCH ×3 (05:16→16:30)
[2019-12-20 08:00] VITALS: BP 101/74
[2019-12-20] MEDS ORDERED: ASPIRIN 81 MG TAB.CHEW PO SCH (09:00)
[2019-12-20] MEDS ORDERED: LISINOPRIL 5 MG TAB PO SCH (09:00)
[2019-12-20] MEDS ORDERED: DOCUSATE SODIUM 100 MG GELCAP PO SCH (09:00)
[2019-12-20] MEDS ORDERED: ATORVASTATIN 20 MG TAB PO SCH (09:00)
[2019-12-20] MEDS: MORPHINE SULFATE 2 MG/ML SYR IVP PRN (11:39)
[2019-12-20 12:00] VITALS: BP 98/62
[2019-12-20] MEDS ORDERED: SIMETHICONE 80 MG TAB.CHEW PO PRN (13:50)
[2019-12-20] MEDS: GAUZE TP SCH (14:50)
[2019-12-20 16:00] VITALS: BP 102/69
[2019-12-20] MEDS ORDERED: FURO-572 PO ×3 (16:16→16:30)
== END 2019-12-20 19:00 | disposition home health service (06) | DRG 313 ==
LOC: MED 19:05 → MMU 22:47
PROVIDERS: ADMIT Hospitalist; ATTEND Hospitalist
DX: R07.9 Chest pain, unspecified (principal); I25.10 Atherosclerotic heart disease of native coronary artery without angina pectoris; I50.9 Heart failure, unspecified; Z79.899 Other long term (current) drug therapy; E11.9 Type 2 diabetes mellitus without complications; I11.0 Hypertensive heart disease with heart failure; K21.9 Gastro-esophageal reflux disease without esophagitis; E78.5 Hyperlipidemia, unspecified; K44.9 Diaphragmatic hernia without obstruction or gangrene; S81.802A Unspecified open wound, left lower leg, initial encounter; X58.XXXA Exposure to other specified factors, initial encounter; Y93.89 Activity, other specified; Y92.89 Other specified places as the place of occurrence of the external cause; Y99.8 Other external cause status
CPT/HCPCS: 36415; 71045; 80053; 82550; 82553; 83690; 83880; 84484; 85025; 87081; 93005; 97112; 97116; 97161-GP; 99285; J1815; J2270; Q0092

== ENCOUNTER 2020-01-02 18:29 | Emergency (ER) | payer OTHER ==
[~2020-01-02] VITALS: Ht 177.8 cm; Wt 79.4 kg
[~2020-01-02 18:29] MED LIST changes: +FURO-572 PO; -HUMSLIDE SUBQ; -MORP2SOL18 IVP; -NITR0.4T1 SL
[2020-01-02 18:33] VITALS: BP 124/88
--- NOTE | 2020-01-02 18:40 | NUR ---
GARCIA WAS PLACED HERE December FOR URINARY RETENTION, PT WAS INSTRUCTED TO FOLLOW UP WITH PCP IN REGARDS TO REMOVING CATHETER PT STILL HAS CATHETER IN PT STATES HE HAS DIARRHEA ,PT AWAKE ,A LERT, AFIBRILE , AMBULATORY WITH CATHETER BAG IN HIS LEFT LEG .
--- NOTE | 2020-01-02 18:41 | NUR ---
dr meyer at bedside evaluating pt.
--- NOTE | 2020-01-02 18:41 | NUR ---
Dr. Bullock is evaluating the patient at bedside.
[2020-01-02] MEDS ORDERED: TAMSULOSIN 0.4 MG CAP PO ONE (18:45)
[2020-01-02] MEDS ORDERED: LOPERAMIDE 2 MG CAP PO ONE (19:10)
--- NOTE | 2020-01-02 19:10 | NUR ---
margie luna discharge pt.informed margie stovall pt needs to void before jw home per dr meyer instruction.
--- NOTE | 2020-01-02 19:15 | NUR ---
Pt report received from margie waterman. Transfer of care at this time. pt administered ordered med, and asked to notify me when ready to void.
--- NOTE | 2020-01-02 21:07 | NUR ---
pt unable to provide urine at this time. pt given water and urinal at bedside.
[2020-01-03] MEDS ORDERED: HYDROcodone/APAP 5/325 MG 1 TAB TAB PO ONE (01:00)
[2020-01-03 02:05] VITALS: BP 124/88
== END 2020-01-03 02:05 | disposition home or self-care (01) ==
LOC: MED 18:29
DX: N40.1 Benign prostatic hyperplasia with lower urinary tract symptoms (principal); I11.0 Hypertensive heart disease with heart failure; Z79.899 Other long term (current) drug therapy
CPT/HCPCS: 99284; 99285